=== PATIENT | male | born 1985 | race Caucasian/White ===

== ENCOUNTER 2017-05-27 12:45 | Emergency (ER) | END 2017-05-27 19:25 | disposition home or self-care (01) ==

== ENCOUNTER 2018-10-22 16:26 | Emergency (ER) | payer MEDICAID, OTHER ==
[~2018-10-22] VITALS: Ht 162.6 cm; Wt 58.8 kg
[~2018-10-22 16:26] MED LIST: ACET500C5 PO; ELEC100080 PO; FAMO-96 PO; METO10TA92 PO
[2018-10-22 16:36] VITALS: BP 128/83; PULSE 91; RESP 18; Ht 162.6 cm; Wt 58.8 kg
[2018-10-22] MEDS ORDERED: IBUP-1561 PO (17:36)
--- NOTE | 2018-10-22 17:39 | ERD ---
ER Documentation Chief Complaint Chief Complaint R hand/5th digit pain after hitting wall 2 wks ago HPI 33-year-old male presents with pain in the right pinky finger after hitting object 2 weeks ago. Pain is in the proximal fifth digit. Restricted range of motion due to pain but no weakness or deficits. He has no warmth, erythema or bleeding. ROS All systems reviewed and are negative except as per history of present illness. Medications Home Meds Active Scripts Ibuprofen* (Motrin*) 400 Mg Tab, 400 MG PO Q6, #15 TAB Prov:ODALIS MACDONALD MD 10/22/18 Acetaminophen* (Tylophen*) 500 Mg Capsule, 1 CAP PO Q6H PRN for PAIN AND OR ELEVATED TEMP, #30 CAP Prov:MERA URIARTE-C 05/27/17 Famotidine* (Pepcid*) 20 Mg Tablet, 20 MG PO BID for 10 Days, TAB Prov:MERA URIARTE-C 05/27/17 Electrolyte,Oral (Pedialyte) 1,000 Ml Solution, 100 ML PO Q6 PRN for VOMITTING, #1000 ML Prov:MERA URIARTE-C 05/27/17 Metoclopramide* (Reglan*) 10 Mg Tablet, 10 MG PO Q6 PRN for NAUSEA AND/OR VOMITING, #12 TAB Prov:MERA URIARTE-C 05/27/17 Allergies Allergies: Coded Allergies: No Known Allergy (Unverified , 05/27/17) PMhx/Soc History of Surgery: No Anesthesia Reaction: No Hx Neurological Disorder: No Hx Respiratory Disorders: No Hx Cardiac Disorders: No Hx Psychiatric Problems: No Hx Miscellaneous Medical Probl: No Hx Alcohol Use: No Hx Substance Use: No Hx Tobacco Use: No Smoking Status: Never smoker Physical Exam Vitals Vital Signs Date Temp Pulse Resp B/P (MAP) Pulse Ox O2 O2 Flow FiO2 Time Delivery Rate 10/22/18 98.6 91 18 128/83 100 16:36 (98) Physical Exam Const: No acute distress Head: Atraumatic Eyes: Normal Conjunctiva ENT: Normal External Ears, Nose and Mouth. Neck: Full range of motion. No meningismus. Resp: Clear to auscultation bilaterally Cardio: Regular rate and rhythm, no murmurs Abd: Soft, non tender, non distended. Normal bowel sounds Skin: No petechiae or rashes Back: No midline or flank tenderness Ext: No cyanosis, or edema. Right fifth digit shows mild deformity proximally. Is no restricted range of motion or deficits. Cap refill is less than 2 seconds. No bleeding, warmth or erythema. Neur: Awake and alert Psych: Normal Mood and Affect Procedures/MDM X-ray Hand 3V interpreted by me: Scaphoid: Normal Bones: Proximal right fifth digit fracture with 20 degrees angulation dorsally. Joints: No dislocation Foreign body: None. Impression-angulated right proximal fifth digit fracture. Resents with subacute right fifth digit fracture without signs of ischemia, deficits, infection. Patient states in the right pinky finger metal splint was neurovascular intact after splint. Discharged home with primary care and orthopedic follow-up and return precautions for redness, fevers, new worsening symptoms. He was advised he may need authorization from primary doctor or [place] facility. The patient was stable with no new complaints during the ER course. Clinically, there is no current evidence to suggest meningitis, sepsis, acute abdomen, pneumonia, stroke, acute coronary syndrome, pulmonary embolism, aortic dissection or any other emergent condition appearing to require further evaluation or hospitalization. Patient counseled regarding my diagnostic imp ression and care plan. Prior to discharge all questions answered. Pt agrees with treatment plan and understands strict return precautions. Pt is instructed to follow up with primary care provider within 24-48 hours. Precautionary instructions provided including instructions to return to the ER if not improving or for any worsening or changing symptoms or concerns. Disclaimer: Inadvertent spelling and grammatical errors are likely due to EHR/dictation software use and do not reflect on the overall quality of patient care. Also, please note that the electronic time recorded on this note does not necessarily reflect the actual time of the patient encounter. Addendum-results and treatment follow-up, return precautions were discussed with patient however patient apparently eloped prior to formal discharge paperwork according to nurse. Departure Diagnosis: Primary Impression: Finger fracture Encounter type: initial encounter Finger: little finger Fracture type: closed Phalanx: proximal Fracture alignment: displaced Laterality: right Qualified Codes: S62.616A - Displaced fracture of proximal phalanx of right little finger, initial encounter for closed fracture Condition: Stable Patient Instructions: Fracture, Finger (Closed) Referrals: CHARLES RG MD [facility] Additional Instructions: Is a fracture in the area of pain. See orthopedist for further evaluation treatment. May need authorization from primary doctor for orthopedist visit or [facility] facility. ODALIS MACDONALD MD October 22, 2018 17:39
== END 2018-10-22 18:30 | disposition left against medical advice (07) ==
LOC: FTE 16:26
DX: S62.616A Displaced fracture of proximal phalanx of right little finger, initial encounter for closed fracture (principal); W22.01XA Walked into wall, initial encounter; Y92.9 Unspecified place or not applicable
CPT/HCPCS: 29130; 73130; Z7502; Z7610

== ENCOUNTER 2018-12-14 21:45 | Emergency (ER) | payer OTHER ==
[~2018-12-14] VITALS: Ht 167.6 cm; Wt 57.3 kg
[~2018-12-14 21:45] MED LIST changes: +CEPH-443 PO; +IBUP-1561 PO; +ONDA4TAB14 PO
[2018-12-14 21:48] VITALS: Ht 167.6 cm; Wt 57.3 kg
[2018-12-14] MEDS ORDERED: ONDANSETRON 4 MG INJ IV STA (23:12)
[2018-12-14] MEDS ORDERED: LIDOCAINE/MYLANTA 40 ML BTL PO STA (23:12)
[2018-12-14] MEDS ORDERED: SOD CHLORIDE 0.9% 1,000 ML IV STA (23:17)
[2018-12-15] MEDS ORDERED: METOCLOPRAMIDE 10 MG INJ IV STA (00:03)
[2018-12-15] MEDS ORDERED: FAMOTIDINE 20 MG INJ IV STA (00:03)
[2018-12-15 01:26] VITALS: BP 106/74; PULSE 73; RESP 18
--- NOTE | 2018-12-15 01:31 | ERD ---
ER Documentation Chief Complaint Chief Complaint Vomiting, AP X 2 days HPI Patient is a 33-year-old male who presents the ER for concerns of epigastric pain and vomiting for the last 2 days. Patient admits to marijuana use as well as methamphetamine use daily. Denies alcohol use. Patient states he vomited throughout the day, unable to quantify the number. Patient denies any blood in his vomit. Patient denies any fevers or chills. Patient describes his pain to be localized to the epigastric region and burning in nature. Patient does admit to eating spicy and fried foods. Patient denies any chest pain, shortness of breath, cough, left upper extremity pain, diaphoresis, LOC. Patient is here with his girlfriend. Patient denies any dysuria, frequency, urgency or penile discharge. No recent travel. ROS All systems reviewed and are negative except as per history of present illness. Medications Home Meds Active Scripts Cephalexin* (Keflex*) 500 Mg Capsule, 500 MG PO TID for 10 Days, CAP Prov:JEF RODRÍGUEZ PA-C 12/15/18 Ondansetron (Ondansetron Odt) 4 Mg Tab.rapdis, 4 MG PO Q6H PRN for NAUSEA AND/OR VOMITING, #10 TAB Prov:JEF RODRÍGUEZ PA-C 12/15/18 Ibuprofen* (Motrin*) 400 Mg Tab, 400 MG PO Q6, #15 TAB Prov:ODALIS MACDONALD MD 10/22/18 Acetaminophen* (Tylophen*) 500 Mg Capsule, 1 CAP PO Q6H PRN for PAIN AND OR ELEVATED TEMP, #30 CAP Prov:MERA URIARTE PA-C 05/27/17 Famotidine* (Pepcid*) 20 Mg Tablet, 20 MG PO BID for 10 Days, TAB Prov:MERA URIARTE PA-C 05/27/17 Electrolyte,Oral (Pedialyte) 1,000 Ml Solution, 100 ML PO Q6 PRN for VOMITTING, #1000 ML Prov:MERA URIARTE PA-C 05/27/17 Metoclopramide* (Reglan*) 10 Mg Tablet, 10 MG PO Q6 PRN for NAUSEA AND/OR VOMITING, #12 TAB Prov:MERA URIARTE PA-C 05/27/17 Allergies Allergies: Coded Allergies: No Known Allergy (Unverified , 05/27/17) PMhx/Soc History of Surgery: No Anesthesia Reaction: No Hx Neurological Disorder: No Hx Respiratory Disorders: No Hx Cardiac Disorders: No Hx Psychiatric Problems: No Hx Miscellaneous Medical Probl: No Hx Alcohol Use: No Hx Substance Use: Yes (Methamphetamine daily, marijuana daily) Hx Tobacco Use: Yes Smoking Status: Current every day smoker FmHx Family History: No diabetes Physical Exam Vitals Vital Signs Date Temp Pulse Resp B/P (MAP) Pulse Ox O2 O2 Flow FiO2 Time Delivery Rate 12/14/18 97.7 76 18 134/67 100 21:48 (89) Physical Exam GENERAL: Well-developed, well-nourished male. Appears in no acute distress. HEAD: Normocephalic, atraumatic. EYES: Pupils are equally reactive bilaterally. EOMs grossly intact. No conjunctival erythema. ENT: Moist mucous membranes. No uvula deviation. No kissing tonsils. NECK: Supple. No meningismus. Normal range of motion of the neck. LUNG: Clear to auscultation bilaterally. No rhonchi, wheezing, rales or coarse breath sounds. HEART: Regular rate and rhythm. No murmurs, rubs or gallops. ABDOMEN: Soft and nondistended. Tender to palpation in the epigastric region. Positive bowel sounds in all four quadrants. No rebound tenderness, no guarding. (-) McBurney's point tenderness. No CVA tenderness. BACK: No midline tenderness. EXTREMITIES: Equal pulses bilaterally. No peripheral clubbing, cyanosis or edema. No unilateral leg swelling. NEUROLOGIC: Alert and oriented. Moving all four extremities without any difficulty. Normal speech. Steady gait. SKIN: Normal color. Warm and dry. No rashes or lesions. Result Diagram: 12/14/18232612/14/182326 Results 24 hrs Laboratory Tests Test 12/14/18 23:27 12/15/18 00:15 White Blood Count 11.0 10^3/ul Red Blood Count 5.21 10^6/ul Hemoglobin 15.1 g/dl Hematocrit 45.0 % Mean Corpuscular Volume 86.4 fl Mean Corpuscular Hemoglobin 29.0 pg Mean Corpuscular Hemoglobin Concent 33.6 g/dl Red Cell Distribution Width 12.8 % Platelet Count 408 10^3/UL Mean Platelet Volume 9.0 fl Immature Granulocytes % 0.400 % Neutrophils % 72.2 % Lymphocytes % 21.0 % Monocytes % 4.9 % Eosinophils % 1.0 % Basophils % 0.5 % Nucleated Red Blood Cells % 0.0 /100WBC Immature Granulocytes # 0.040 10^3/ul Neutrophils # 7.9 10^3/ul Lymphocytes # 2.3 10^3/ul Monocytes # 0.5 10^3/ul Eosinophils # 0.1 10^3/ul Basophils # 0.1 10^3/ul Nucleated Red Blood Cells # 0.0 10^3/ul Urine Color NICKI Urine Clarity CLOUDY Urine pH 6.0 Urine Specific [place] 1.024 Urine Ketones TRACE mg/dL Urine Nitrite POSITIVE mg/dL Urine Bilirubin NEGATIVE mg/dL Urine Urobilinogen NEGATIVE mg/dL Urine Leukocyte Esterase TRACE Tom/ul Urine Microscopic RBC 3 /HPF Urine Microscopic WBC 20 /HPF Urine Bacteria FEW /HPF Urine Hemoglobin NEGATIVE mg/dL Urine Glucose NEGATIVE mg/dL Urine Total Protein NEGATIVE mg/dl Sodium Level 142 mmol/L Potassium Level 4.5 mmol/L Chloride Level 103 mmol/L Carbon Dioxide Level 30 mmol/L Anion Gap 9 Blood Urea Nitrogen 8 mg/dl Creatinine 1.10 mg/dl Est Glomerular Filtrat Rate mL/min > 60 mL/min Glucose Level 120 mg/dl Calcium Level 9.6 mg/dl Total Bilirubin 0.8 mg/dl Direct Bilirubin 0.00 mg/dl Indirect Bilirubin 0.8 mg/dl Aspartate Amino Transf (AST/SGOT) 23 IU/L Alanine Aminotransferase (ALT/SGPT) 17 IU/L Alkaline Phosphatase 68 IU/L Total Protein 7.6 g/dl Albumin 4.4 g/dl Globulin 3.20 g/dl Albumin/Globulin Ratio 1.37 Lipase 87 U/L Troponin I < 0.012 ng/ml Current Medications Medications Dose Sig/Deshawn Start Time Status Last (Trade) Ordered Route PRN Stop Time Admin Dose Reason Admin Ondansetron 4 mg ONCE STAT 12/14/18 DC 12/14/18 HCl (Zofran IV 23:12 23:33 Inj) 12/14/18 23:14 40 ml ONCE STAT 12/14/18 DC 12/14/18 Miscellaneous PO 23:12 23:34 Medication 12/14/18 23:14 (Gi Cocktail (2)) Sodium 1,000 ml @ Q1H STAT 12/14/18 DC 12/14/18 Chloride 1,000 mls/hr IV 23:17 23:34 12/15/18 00:16 10 mg ONCE STAT 12/15/18 DC 12/15/18 Metoclopramid IV 00:03 00:08 e HCl 12/15/18 00:05 (Reglan) Famotidine 20 mg ONCE STAT 12/15/18 DC 12/15/18 (Pepcid Iv) IV 00:03 00:08 12/15/18 00:05 Procedures/MDM ED COURSE: The patient was stable throughout ED course. I kept the patient and/or family informed of laboratory and diagnostic imaging results throughout the ED course. EKG: Read by Dr. Damon, attending physician. EKG shows normal sinus rhythm sinus arrhythmia 73 bpm. Incomplete right bundle branch block noted. Right axis deviation. Right arterial enlargement. No STEMI MEDICATIONS GIVEN: IV fluids, Zofran, Reglan Patient tolerated medication well with no adverse reactions. Patient reported improvement in pain. MEDICAL DECISION MAKING: This is a 33-year-old male who presents to the ER for concerns of epigastric pain and vomiting for the last 2 days. Patient admits to daily use of marijuana as well as methamphetamines. Vital signs were reviewed. Patient is afebrile. Patient was not hypoxic. Abdominal exam did reveal tenderness to palpation in the epigastric region. Patient had no rebound or guarding. Patient had no peritoneal signs. IV line was established. Fluids were given. Zofran given. CBC showed mildly elevated WBC count likely reactive secondary to vomiting. No evidence of severe anemia. CMP showed no evidence of electrolyte abnormalities, severe acidosis, alkalosis, renal failure, or liver disease. Lipase showed no evidence of acute pancreatitis. UA did show positive nitrites and positive WBCs. Patient will be treated with Keflex. Urine will be sent for culture as well as gonorrhea chlamydia testing. Results are pending. EKG showed normal sinus rhythm with sinus arrhythmia. Reviewed by ED attending. No STEMI. Patient was advised to follow-up with advertising agent for his EKG findings. Troponin was within normal limits. Patient did have a single episode of vomiting throughout the ED course. Patient was given additional antiemetics of Reglan. Upon repeat exam, patient no longer had any episodes of vomiting. Patient was sleeping with no signs of distress. At this time with the patient presentation most consistent with cyclic vomiting syndrome likely due to marijuana use. Differential diagnosis include was not limited to acute coronary syndrome, AAA, mesenteric ischemia, lower lobe pneumonia, DKA, bowel perforation, cholecystitis, choledocholithiasis, ascending cholangitis, hepatic abscess, pancreatitis,splenic rupture, diverticulitis, UTI, pyelonephritis, nephrolithiasis, appendicitis, constipation, testicular torsion. Unable to rule out PUD patient was nontoxic, [id number] prior to discharge. PRESCRIPTIONS: Keflex, Zofran DISCHARGE: At this time, patient is stable for discharge and outpatient management. I have instructed the patient to follow-up with his/her primary care physician in 1-2 days. I have instructed the patient to promptly return to the ER at any time for any new or worsening symptoms including increased pain, nausea, vomiting, diarrhea, fever, weakness or LOC. The patient and/or family expressed u nderstanding of and agreement with this plan. All questions were answered. Home care instructions were provided. Disclaimer: Inadvertent spelling and grammatical errors are likely due to EHR/dictation software use and do not reflect on the overall quality of patient care. Also, please note that the electronic time recorded on this note does not necessarily reflect the actual time of the patient encounter. . Departure Diagnosis: Primary Impression: Cyclic vomiting syndrome Vomiting Intractability: unspecified Nausea presence: unspecified Qualified Codes: G43.A0 - Cyclical vomiting, not intractable Additional Impressions: Marijuana abuse UTI (urinary tract infection) Urinary tract infection type: site unspecified Hematuria presence: without hematuria Qualified Codes: N39.0 - Urinary tract infection, site not specified Methamphetamine abuse Condition: Fair Patient Instructions: Vomiting (8Y-Adult) Referrals: [facility] YOU HAVE RECEIVED A MEDICAL SCREENING EXAM AND THE RESULTS INDICATE THAT YOU DO NOT HAVE A CONDITION THAT REQUIRES URGENT TREATMENT IN THE EMERGENCY DEPARTMENT. FURTHER EVALUATION AND TREATMENT OF YOUR CONDITION CAN WAIT UNTIL YOU ARE SEEN IN YOUR DOCTORS OFFICE WITHIN THE NEXT 1-2 DAYS. IT IS YOUR RESPONSIBILITY TO MAKE AN APPOINTMENT FOR FOLOW-UP CARE. IF YOU HAVE A PRIMARY DOCTOR --you should call your primary doctor and schedule an appointment IF YOU DO NOT HAVE A PRIMARY DOCTOR YOU CAN CALL OUR PHYSICIAN REFERRAL HOTLINE AT IF YOU CAN NOT AFFORD TO SEE A PHYSICIAN YOU CAN CHOSE FROM THE FOLLOWING [facility] [address] [facility] [address] [facility] [place] [address] [facility] [address] [facility] [address] [facility]. [facility] [address] [facility]. [facility] YOU HAVE RECEIVED A MEDICAL SCREENING EXAM AND THE RESULTS INDICATE THAT YOU DO NOT HAVE A CONDITION THAT REQUIRES URGENT TREATMENT IN THE EMERGENCY DEPARTMENT. FURTHER EVALUATION AND TREATMENT OF YOUR CONDITION CAN WAIT UNTIL YOU ARE SEEN IN YOUR DOCTORS OFFICE WITHIN THE NEXT 1-2 DAYS. IT IS YOUR RESPONSIBILITY TO MAKE AN APPOINTMENT FOR FOLOW-UP CARE. IF YOU HAVE A PRIMARY DOCTOR --you should call your primary doctor and schedule and appointment IF YOU DO NOT HAVE A PRIMARY DOCTOR YOU CAN CALL OUR PHYSICIAN REFERRAL HOTLINE AT . IF YOU CAN NOT AFFORD TO SEE A PHYSICIAN YOU CAN CHOSE FROM THE FOLLOWING [facility] INSTITUTIONS: [facility] [address] [place] [address] [facility] [address] [place] [address] [facility] [address] [place] [address] Additional Instructions: Call your primary care doctor TOMORROW for an appointment during the next 1-2 days.See the doctor sooner or return here if your condition worsens before your appointment time. JEF RODRÍGUEZ PA-C Dec 15, 2018 01:31
== END 2018-12-15 01:26 | disposition home or self-care (01) ==
LOC: FTE 21:45
DX: G43.A0 Cyclical vomiting, in migraine, not intractable (principal); N39.0 Urinary tract infection, site not specified; F12.10 Cannabis abuse, uncomplicated; F15.10 Other stimulant abuse, uncomplicated; F17.210 Nicotine dependence, cigarettes, uncomplicated
CPT/HCPCS: 36415; 80053; 81001; 83690; 84484; 85025; 87086; 87591; 93005; 96374; 96375; J2405; J2765; J7030; Z7502; Z7610